=== PATIENT | male | born 1970 | race Caucasian/White ===

== ENCOUNTER 2021-03-21 20:03 | Observation (INO) | payer BC ==
[~2021-03-21 20:03] MED LIST: Iopamidol-370 76% 500 ML 1 ML ONE
[2021-03-21 20:45] LABS: #Lymphocytes 0.9 thou/uL (1.20-3.40); #Monocytes 0.4 thou/uL (0.11-0.59); #Neutrophils 3.6 thou/uL (1.40-6.50); %Eosinophils 0.3 % (0.0-10.0); %Lymphocytes 17.7 % (21.0-51.0); %Monocytes 8.1 % (0.0-10.0); %Neutrophils 73.9 % (42.0-75.0); Hemoglobin 15.4 g/dL (14.0-18.0); Mean Corpuscular HGB CONC 34.4 g/dL (32.0-36.0); Mean Corpuscular Hemoglobin 30.8 pg (27.0-31.0); Mean Corpuscular Volume 89.6 fL (78.0-98.0); Mean Platelet Volume 8.2 fL (7.4-10.4); Platelet Count 157 thou/uL (130-400); RBC Distribution Width 12.2 % (11.5-14.5); Red Blood Cell (RBC) Count 4.98 mill/uL (4.70-6.10); White Blood Cell (WBC) Count 4.9 thou/uL (4.8-10.8)
[2021-03-21 21:07] LABS: ALT (SGPT) 49 U/L (8-55); AST (SGOT) 36 U/L (5-34); Albumin 3.6 g/dL (3.5-5.0); Alkaline Phosphatase 106 U/L (40-110); Anion Gap 15 mmol/L (10-20); BUN (Urea Nitrogen) 21 mg/dL (8.9-20.6); Bilirubin, Total 0.9 mg/dL (0.2-1.2); Calc. Creatinine Clearance 0 mL/min (70-130); Carbon Dioxide 24 mmol/L (22-29); Chloride 101 mmol/L (98-107); Globulin 3.6 g/dL (2.4-3.5); Glucose 292 mg/dL (70-105); Potassium 3.6 mmol/L (3.5-5.1); Protein, Total 7.2 g/dL (6.0-8.3); Sodium 136 mmol/L (136-145)
[2021-03-21] MEDS ORDERED: Albuterol 200 PUFF (6.7GM INHALER) ONE (21:10)
[2021-03-21] MEDS ORDERED: Acetaminophen 650 MG Suppository PR PRN (23:07)
[2021-03-21] MEDS ORDERED: Ondansetron PF 4 MG/2 ML Vial IVP PRN (23:07)
[2021-03-21] MEDS ORDERED: Acetaminophen 325 MG TAB PO PRN (23:07)
[2021-03-21] MEDS ORDERED: Calcium Carbonate 500 MG ChewTAB PO PRN (23:07)
[2021-03-21] MEDS ORDERED: Ondansetron ODT 4 MG TAB PO PRN (23:07)
[2021-03-21] MEDS ORDERED: Acetaminophen 500 MG TAB ONE (23:08)
[2021-03-21] MEDS ORDERED: Dexamethasone 10 MG/ML VIAL ONE (23:08)
[2021-03-22] MEDS ORDERED: Dextrose 50% Abboject 50 ML SYRINGE SLOW IVP PRN (01:13)
[2021-03-22] MEDS ORDERED: HumaLOG 300 UNITS/3 ML VIAL SC PRN ×2 (01:13)
[2021-03-22] MEDS ORDERED: Dextrose 5% in Water 1,000 ML IV PRN (01:13)
[2021-03-22 01:18] VITALS: BMI 36.9
[2021-03-22 03:04] LABS: Troponin I 0.024 ng/mL (< 0.028)
[2021-03-22 03:10] LABS: Anion Gap 13 mmol/L (10-20); BUN (Urea Nitrogen) 20 mg/dL (8.9-20.6); Calc. Creatinine Clearance 137 mL/min (70-130); Calcium 9.2 mg/dL (7.8-10.44); Carbon Dioxide 26 mmol/L (22-29); Cardiac Risk 5.5 (Less than 4.5); Chloride 100 mmol/L (98-107); Cholesterol 120 mg/dl (< 200 Desired); Glucose 314 mg/dL (70-105); HDL Cholesterol 22 mg/dL (>60 Neg Risk); LDL Cholesterol, Calculated 69 mg/dL; Sodium 135 mmol/L (136-145); Triglycerides 143 mg/dL (Less than 150)
[2021-03-22] MEDS: HumaLOG 300 UNITS/3 ML VIAL SC PRN ×2 (05:26→12:45)
[2021-03-22 07:19] LABS: Hemoglobin A1c 8.3 % (4.0-6.0)
[2021-03-22] MEDS ORDERED: Lisinopril 5 MG TAB PO SCH (09:00)
[2021-03-22] MEDS ORDERED: Enoxaparin Sodium 40 MG/0.4 ML SYRINGE SC SCH (09:00)
[2021-03-22 12:24] VITALS: TEMP 97.9
[2021-03-22] MEDS ORDERED: metFORMIN 500 MG TAB PO SCH (17:00)
[2021-03-22 17:30] VITALS: BP 147/93
== END 2021-03-22 15:37 | disposition home or self-care (01) ==
LOC: ERS 20:03 → T4-A 22:37
PROVIDERS: ADMIT Emergency Medicine; ATTEND Emergency Medicine
DX: U07.1 COVID-19 (principal); J12.82 Pneumonia due to coronavirus disease 2019; I12.9 Hypertensive chronic kidney disease with stage 1 through stage 4 chronic kidney disease, or unspecified chronic kidney disease; E11.22 Type 2 diabetes mellitus with diabetic chronic kidney disease; N18.2 Chronic kidney disease, stage 2 (mild); E11.65 Type 2 diabetes mellitus with hyperglycemia; F17.220 Nicotine dependence, chewing tobacco, uncomplicated; E66.9 Obesity, unspecified; Z68.36 Body mass index [BMI] 36.0-36.9, adult
CPT/HCPCS: 36415; 36416; 71045; 71275; 80048; 80053; 80061; 83036; 83605; 84145; 84443; 84484; 85025; 85379; 93005; 96372; 96374; G0378; J1100; J1650; J1815; Q9967